=== PATIENT | female | born 1990 | race Caucasian/White ===

== ENCOUNTER 2016-09-03 16:49 | Emergency (ER) | payer MEDICAID ==
--- NOTE | 2016-09-03 17:46 | ED Physician Chart ---
Chief Complaint/HPI - Patient Information Date Seen:: 09/03/16 Time Seen:: 18:00 Chief Complaint:: vaginal spotting History of Present Illness:: Patient's had vaginal spotting since 07/13/2016. She denies abdominal pain. He was seen at [facility] on the and 26 of August. She was told on August 26 in her hormone level was decreasing. Patient is 1. 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: Vaginal discharge, Abnormal vaginal bleeding, No contraction Musculoskeletal: No bone or joint pain, No muscle pain Psychiatric: No prior psych history, No depression Hematopoietic: No bruising Allergic/Immuno: No urticaria Neurological: No syncope Past Medical History - Past Medical History Past Medical History: No significant medical hx Family History: None Social History: Smoker, No Alcohol, Other (smokes a pipe using the tobacco equivalent of 3 cigarettes a day) Surgical History: None Medication: None Family Medical History - Family Member Mother History Unknown: Yes Ethnicity: Living Status: Still Living Physical Exam - Physical Examination General/Constitutional: Well-developed, well-nourished, Alert, No distress Head: Atraumatic Eyes: Lids, conjuctiva normal, PERRL Skin: Nl inspection, No rash, No skin lesions, No ecchymosis ENMT: External ears, nose nl, TM canals nl, Nasal exam nl, Lips, teeth, gums nl , Oropharynx nl, Tonsils nl Neck: No nuchal rigidity Respiratory: Nl effort/Exclusion, Clear to Auscultation Cardio Vascular: RRR GI: No tenderness/rebounding/guarding Other comments:: Bimanual pelvic exam: No cervical motion or adnexal tenderness; uterus not enlarged to palpation; minimal reddish fluid on examining glove Extremities: No tenderness or effusion Neuro/Psych: Alert/oriented, No focal deficits Labs/Radiology/EKG Results - Lab Results Results: Laboratory Results - last 24 hr 09/03/16 09/03/16 09/03/16 17:10 17:10 18:20 WBC 9.8 RBC 4.23 Hgb 13.2 Hct 38.4 MCV 90.8 MCH 31.3 H MCHC Differential 34.4 RDW 11.5 Plt Count 295 MPV 8.7 Neutrophils % 59.0 Lymphocytes % 28.7 Monocytes % 8.3 Eosinophils % 3.4 Basophils % 0.6 Beta HCG, Quant Urine Source CLEAN C Urine Color YELLOW Urine Clarity SLIGHT HAZY Urine pH 5.0 Ur Specific [place] 1.030 Urine Protein TRACE Urine Glucose (UA) NEGATIVE Urine Ketones TRACE Urine Blood LARGE H Urine Nitrate NEGATIVE Urine Bilirubin SMALL H Urine Urobilinogen 0.2 Ur Leukocyte Esterase NEGATIVE Urine RBC 10-25 H Urine WBC 0-2 Ur Epithelial Cells MANY Urine Bacteria FEW Urine Test POSITIVE Blood Type Antibody Screen 09/03/16 09/03/16 18:20 18:20 WBC RBC Hgb Hct MCV MCH MCHC Differential RDW Plt Count MPV Neutrophils % Lymphocytes % Monocytes % Eosinophils % Basophils % Beta HCG, Quant 831 Urine Source Urine Color Urine Clarity Urine pH Ur Specific [place] Urine Protein Urine Glucose (UA) Urine Ketones Urine Blood Urine Nitrate Urine Bilirubin Urine Urobilinogen Ur Leukocyte Esterase Urine RBC Urine WBC Ur Epithelial Cells Urine Bacteria Urine Test Blood Type O POSITIVE Antibody Screen NEGATIVE - Radiology Results Results: Pelvic ultrasound showed uterine fibroid only; no IUP ED Septic Shock - . Is Septic Shock (SBP<90, OR Lactate>4 mmol\L) present?: No Reassessment (Disposition) - Reassessment Reassessment Condition:: Unchanged - Diagnosis Diagnosis:: Complete Ab - Aftercare/Follow up Instructions Aftercare/Follow-Up Instructions:: Counseled pt regarding lab results/diagnosis & need follow up - Patient Disposition Discharge/Transfer:: Home Condition at Disposition:: Stable, Unchanged
[2016-09-03 18:03] LABS: URINE BILIRUBIN SMALL (NEGATIVE); URINE BLOOD LARGE (NEGATIVE); URINE COLOR YELLOW; URINE GLUCOSE (UA) NEGATIVE (NEGATIVE); URINE KETONE TRACE mg/dL (NEGATIVE)
[2016-09-03 18:04] LABS: URINE BACTERIA FEW /hpf (NONE SEEN); URINE EPITHELIAL CELLS MANY /lpf (FEW); URINE PROTEIN TRACE mg/dL (NEGATIVE); URINE UROBILINOGEN 0.2 E.U./dL (0.2 - 1.0); URINE WBC 0-2 /hpf (0-5)
[2016-09-03 18:28] LABS: % BASOPHILS 0.6 % (0.0-2.0); % EOSINOPHILS 3.4 % (0.0-5.0); % LYMPHOCYTES 28.7 % (20.0-50.0); % MONOCYTES 8.3 % (2.0-10.0); HEMATOCRIT 38.4 % (35.0-45.0); HEMOGLOBIN 13.2 gm/dL (11.7-15.5); MEAN CELL VOLUME 90.8 fl (81-100); MEAN CORPUSCULAR HEMOGLOBIN 31.3 pg (27.0-31.0); MEAN CORPUSCULAR HGB CONC 34.4 pg (28.0-36.0); MEAN PLATELET VOLUME 8.7 fl; NEUTROPHILE ABSOLUTE 5.8 Th/cmm (1.8-8.0); PLATELET COUNT 295 Th/cmm (150-400); RED BLOOD COUNT 4.23 Mil/cmm (3.80-5.10); RED CELL DISTRIBUTION WIDTH 11.5 % (11.5-20.0); WHITE BLOOD COUNT 9.8 Th/cmm (4.8-10.8)
--- NOTE | 2016-09-04 10:11 | Diagnostic Imaging Report ---
Ultrasound OB less than 14 weeks HISTORY: Pain. Possible spontaneous . Questionable LMP on 07/13/2016 COMPARISON: None Technique: Longitudinal and transverse sonographic sector images of the pelvis were obtained transabdominally and transvaginally. FINDINGS: The uterus measures 8.0 x 3.0 x 4 cm. The endometrial echo complex measures 5 mm. No gestational sac identified. Small amount of fluid is seen within the endocervical canal. There is a heterogeneous area along the lower uterine segment measuring 4.1 x 2.2 cm. Its is indeterminate and may represent a fibroid or other mass lesions. Ectopic is considered less likely. The right ovary measures 3.6 x 1.9 cm. Left ovary measures 2.7 x 2.3 cm. Bilateral ovarian follicular cystic changes are noted. Vascular flow to the ovaries is noted. No evidence of free fluid in the pelvis. IMPRESSION: No intrauterine gestational sac identified. A small amount of fluid is seen within the endocervical canal. Note is also made of a indeterminate structure/possible mass along the lower uterine region. This may represent a fibroid or other pelvic mass lesions. Ectopic is considered less likely but cannot be completely excluded. Please correlate patient's clinical findings. Short-term follow-up ultrasound or possibly when clinically feasible CT or MRI is recommended. Trace fluid in the endocervical canal. No evidence of free fluid in the pelvis. In the presence of a positive test, ectopic gestation should be excluded.
== END 2016-09-03 20:20 | disposition home or self-care (01) ==
LOC: ER 16:49
DX: O03.9 Complete or unspecified spontaneous abortion without complication (principal); F17.210 Nicotine dependence, cigarettes, uncomplicated; Z3A.14 14 weeks gestation of pregnancy
CPT/HCPCS: 36415-UA; 76801-TC; 81001-TC; 81025-TC; 84702-TC; 85025-TC; 86850-TC; 86900-TC; 86901-TC

== ENCOUNTER 2016-09-13 10:11 | Emergency (ER) | payer MEDICAID ==
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
[2016-09-13] MEDS ORDERED: Sodium Chloride 0.9% 500 ML IV ONE (10:40)
[2016-09-13 10:59] LABS: % BASOPHILS 1.1 % (0.0-2.0); % LYMPHOCYTES 19.7 % (20.0-50.0); % MONOCYTES 8.6 % (2.0-10.0); % NEUTROPHILS 66.6 % (40.0-80.0); HEMATOCRIT 44.6 % (35.0-45.0); MEAN CELL VOLUME 91.3 fl (81-100); MEAN CORPUSCULAR HEMOGLOBIN 30.8 pg (27.0-31.0); MEAN CORPUSCULAR HGB CONC 33.7 pg (28.0-36.0); MEAN PLATELET VOLUME 8.9 fl; NEUTROPHILE ABSOLUTE 5.6 Th/cmm (1.8-8.0); PLATELET COUNT 299 Th/cmm (150-400); RED BLOOD COUNT 4.88 Mil/cmm (3.80-5.10); RED CELL DISTRIBUTION WIDTH 11.8 % (11.5-20.0); WHITE BLOOD COUNT 8.3 Th/cmm (4.8-10.8)
[2016-09-13 11:10] LABS: INR 1.1 (0.5-1.4); PROTHROMBIN TIME (TEST) 11.5 SECONDS (9.5-11.5)
[2016-09-13 11:13] LABS: ALB/GLOB RATIO 1.5 (1.0-1.8); ALKALINE PHOSPHATASE 67 U/L (34-104); ANION GAP 10.5 (7.0-16.0); BILIRUBIN,TOTAL 1.2 mg/dL (0.3-1.0); BUN - UREA NITROGEN 23 mg/dL (7-25); BUN/CREATININE RATIO 28.8; CALCIUM SERUM 9.8 mg/dL (8.6-10.3); CARBON DIOXIDE 25.4 mEq/L (21.0-31.0); CHLORIDE 99 mEq/L (98-107); CREATININE - SERUM 0.8 mg/dL (0.6-1.2); GLUCOSE 163 mg/dL (70-105); SGOT 15 U/L (13-39); SGPT/ALT 15 U/L (7-52); SODIUM SERUM 132 mEq/L (136-145)
[2016-09-13 11:19] LABS: POTASSIUM SERUM 2.9 mEq/L (3.5-5.1)
[2016-09-13] MEDS ORDERED: Potassium Chloride 20 mEq ER Tab PO ONE ×2 (11:28→11:30)
[2016-09-13 11:34] LABS: AMPHETAMINE URINE POSITIVE (NEGATIVE); BARBITURATES URINE NEGATIVE (NEGATIVE); METHADONE URINE NEGATIVE (NEGATIVE)
[2016-09-13 11:54] LABS: URINE COLOR YELLOW; URINE GLUCOSE (UA) NEGATIVE (NEGATIVE)
[2016-09-13 11:55] LABS: URINE BLOOD MODERATE (NEGATIVE); URINE KETONE NEGATIVE (NEGATIVE); URINE PROTEIN 30 mg/dL (NEGATIVE)
[2016-09-13 11:57] LABS: URINE BILIRUBIN MODERATE (NEGATIVE)
[2016-09-13 12:06] LABS: URINE BACTERIA OCCASIONAL /hpf (NONE SEEN); URINE EPITHELIAL CELLS FEW /lpf (FEW)
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
== END 2016-09-13 14:20 | disposition home or self-care (01) ==
LOC: ER 10:11
DX: S05.11XA Contusion of eyeball and orbital tissues, right eye, initial encounter (principal); E87.6 Hypokalemia; E86.0 Dehydration; F19.10 Other psychoactive substance abuse, uncomplicated; F17.210 Nicotine dependence, cigarettes, uncomplicated; Y04.0XXA Assault by unarmed brawl or fight, initial encounter; Y93.89 Activity, other specified; Y92.89 Other specified places as the place of occurrence of the external cause; Y99.8 Other external cause status
CPT/HCPCS: 99285; 70450; 70486; 36415; 84702; 80307; 85025; 85610; 81001; 81025; 80053; J7040

== ENCOUNTER 2016-09-18 22:20 | Emergency (ER) | payer MEDICAID ==
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
[2016-09-18 23:02] LABS: URINE BILIRUBIN NEGATIVE (NEGATIVE); URINE BLOOD MODERATE (NEGATIVE); URINE COLOR YELLOW; URINE GLUCOSE (UA) NEGATIVE (NEGATIVE); URINE KETONE TRACE mg/dL (NEGATIVE); URINE PROTEIN 100 mg/dL (NEGATIVE)
[2016-09-18 23:03] LABS: URINE RBC 25-50 /hpf (0-5); URINE WBC 25-50 /hpf (0-5)
[2016-09-18 23:04] LABS: URINE BACTERIA MODERATE /hpf (NONE SEEN); URINE EPITHELIAL CELLS FEW /lpf (FEW)
== END 2016-09-18 23:20 | disposition home or self-care (01) ==
LOC: ER 22:20
DX: N39.0 Urinary tract infection, site not specified (principal)
CPT/HCPCS: 81001-TC; 87086-90; Z7502

== ENCOUNTER 2016-11-24 20:10 | Emergency (ER) | payer MEDICAID ==
--- NOTE | 2016-11-24 20:53 | ED Physician Chart ---
ED Chief Complaint/HPI - Patient Information Date Seen:: 11/24/16 Time Seen:: 20:48 Chief Complaint:: itchy History of Present Illness:: pt here w her boyfriend who is itchy and has a rash he thinks is scabies. he had it once recently and she got tx too and felt better...thinks she may have got it again from him. she has no rash or distinct lesions but feels itchy all over and particularly at her arms /shldrs. no fever. no sob. no cough. no aches. no n/v/d. no kai pmh. denies any risk of being gravid at this time. Allergies:: Allergies Allergy/AdvReac Type Severity Reaction Status Date / Time No Known Allergies Allergy Verified 11/24/16 20:44 Historian:: Patient ED Review of Systems - Review of Systems General/Constitutional: No fever, No chills, No weight loss, No weakness, No diaphoresis, No edema, No loss of appetite Skin: No skin lesions, No rash, No bruising, Other (itchy) Head: No headache, No light-headedness Eyes: No loss of vision, No pain, No diplopia ENT: No earache, No nasal drainage, No sore throat, No tinnitus Neck: No neck pain, No swelling, No thyromegaly, No stiffness, No mass noted Cardio Vascular: No chest pain, No palpitations, No PND, No orthopnea, No edema Pulmonary: No SOB, No cough, No sputum, No wheezing GI: No nausea, No vomiting, No diarrhea, No pain, No melena, No hematochezia, No constipation, No hematemesis G/U: No dysuria, No frequency, No hematuria Musculoskeletal: No bone or joint pain, No back pain, No muscle pain Endocrine: No polyuria, No polydipsia Psychiatric: No prior psych history, No depression, No anxiety, No suicidal ideation Hematopoietic: No bruising, No lymphadenopathy Allergic/Immuno: No urticaria, No angioedema Neurological: No syncope, No focal symptoms, No weakness, No paresthesia, No headache, No seizure, No dizziness, No confusion, No vertigo ED Past Medical History - Past Medical History Past Medical History: No significant medical hx (scabies 1x recently) Social History: Smoker, Alcohol Medication: Reviewed Family Medical History - Family Member Mother History Unknown: Yes Ethnicity: Living Status: Still Living Hx Family Cancer: Yes (father-prostate [place]) ED Physical Exam - Physical Examination General/Constitutional: Awake, Well-developed, well-nourished, Alert, No distress, GCS 15, Non-toxic appearing, Ambulatory Other Gen/Cons comments:: no obvious rash. no distress. nontoxic. Head: Atraumatic Eyes: Lids, conjuctiva normal, PERRL, EOMI Skin: Nl inspection, No rash, No skin lesions, No ecchymosis, Well hydrated, No lymphadenopathy ENMT: External ears, nose nl, Nasal exam nl, Lips, teeth, gums nl Neck: Nontender, Full ROM w/o pain, No JVD, No nuchal rigidity, No bruit, No mass, No stridor Respiratory: Nl effort/Exclusion, Clear to Auscultation, No Wheeze/Rhonchi/Rales Cardio Vascular: RRR, No murmur, gallop, rubs, NL S1 S2 GI: No tenderness/rebounding/guarding, No organomegaly, No hernia, Normal BS's, Nondistended, No mass/bruits, No McBurney tenderness : No CVA tenderness Extremities: No tenderness or effusion, Full ROM, normal strength in all extremities, No edema, Normal digits & nails Neuro/Psych: Alert/oriented, DTR's symmetric, Normal sensory exam, Normal motor strength, Judgement/insight normal, Mood normal, Normal gait, No focal deficits Misc: normal gait, Normal back, No paraspinal tenderness ED Septic Shock - . Is Septic Shock (SBP<90, OR Lactate>4 mmol\L) present?: No ED Reassessment (Disposition) - Reassessment Reassessment:: rx elimite cream and benadryl po advised see pmd this week. return if worse. cant say for sure this is scabies but since historiacl story is good and pt could have very early case (bf has a rash on rt foot) will go ahead and begin tx. dw pt. Reassessment Condition:: Improved - Diagnosis Diagnosis:: Itching - possible early scabies - Aftercare/Follow up Instructions Aftercare/Follow-Up Instructions:: Counseled pt regarding lab results/diagnosis & need follow up - Patient Disposition Discharge/Transfer:: Home Condition at Disposition:: Improved
== END 2016-11-24 20:55 | disposition home or self-care (01) ==
LOC: ER 20:10
DX: L29.9 Pruritus, unspecified (principal)

== ENCOUNTER 2016-12-18 13:49 | Emergency (ER) | payer MEDICAID, OTHER ==
--- NOTE | 2016-12-18 14:47 | ED Physician Chart ---
ED Chief Complaint/HPI - Patient Information Date Seen:: 12/18/16 Time Seen:: 14:18 Chief Complaint:: scabies for 6 months History of Present Illness:: 26 yo female had itchiness in the neck and hair, bilateral inner upper thigh and groin areas for 6 months. It was likely due to scabies transmitted from her boyfriend had scabies infection for 1 year. Allergies:: Allergies Allergy/AdvReac Type Severity Reaction Status Date / Time No Known Allergies Allergy Verified 11/24/16 20:44 Vitals:: Vital Signs - 8 hr 12/18/16 13:51 Temp 98.1 F HR 84 RR 16 BP 117/69 O2 Sat % 98 ED Review of Systems - Review of Systems General/Constitutional: No fever Skin: Skin lesions Head: No headache Eyes: No loss of vision ENT: No earache Neck: No neck pain Cardio Vascular: No chest pain GI: No nausea G/U: No dysuria Musculoskeletal: No bone or joint pain Endocrine: No polyuria Psychiatric: No prior psych history Hematopoietic: No bruising Neurological: No syncope ED Past Medical History - Past Medical History Past Medical History: No significant medical hx Social History: Smoker, Alcohol, Illicit Drug Use (marijuna) Surgical History: None Psychiatricy History: None Family Medical History - Family Member Mother History Unknown: Yes Ethnicity: Living Status: Still Living Hx Family Cancer: No Hx Family Hypertension: No Hx Family Stroke: No Hx Family Seizures: No Hx Family Dementia: No Hx Family COPD: No Hx Family Hepatitis: No Hx Family Tuberculosis: No ED Physical Exam - Physical Examination Head: Atraumatic Eyes: Lids, conjuctiva normal, PERRL, EOMI Other Skin comments:: Erythematous vesicles and papules are present on neck and inner thigh. Some skin lesions have adjacent linear excoriations. Neck: Full ROM w/o pain Respiratory: Clear to Auscultation Cardio Vascular: No murmur, gallop, rubs, NL S1 S2 GI: No tenderness/rebounding/guarding Extremities: Full ROM Neuro/Psych: No focal deficits ED Labs/Radiology/EKG Results - Lab Results Results: Urine test: negative ED Assessment - Assessment General Assessment: Scabies, mild Critical Care Time: 30 Excludes all billable procedures: Yes This condition life threatening/high prob of deterioration: No Assessment/Comments:: 1. Permethrin 5% cream topical apply qd x 7 days 2. Ivermectin 12mg PO once ED Septic Shock - . Is Septic Shock (SBP<90, OR Lactate>4 mmol\L) present?: No - <6hrs of presentation: Vital Signs: Vital Signs - 8 hr 12/18/16 13:51 Temp 98.1 F HR 84 RR 16 BP 117/69 O2 Sat % 98 ED Reassessment (Disposition) - Reassessment Reassessment Condition:: Unchanged - Aftercare/Follow up Instructions Aftercare/Follow-Up Instructions:: Counseled pt regarding lab results/diagnosis & need follow up, Refer to Discharge Instructions - Patient Disposition Discharge/Transfer:: Home ED Discharge Plan - Patient Disposition Admit/Discharge/Transfer: PT DISCHARGED HOME Condition at Disposition: Stable Prescriptions: Ivermectin [Stromectol] 3 mg PO ONCE #4 tab Permethrin 5% Cream [Elimite 5% Cream] 1 applic TP DAILY 7 Days #60 gm Instructions: Scabies
== END 2016-12-18 15:15 | disposition home or self-care (01) ==
LOC: ER 13:49
DX: B86 Scabies (principal); F12.10 Cannabis abuse, uncomplicated
CPT/HCPCS: 81025-TC; Z7502

== ENCOUNTER 2017-04-22 13:46 | Emergency (ER) | payer OTHER ==
--- NOTE | 2017-04-22 15:23 | ED Physician Chart ---
ED Chief Complaint/HPI - Patient Information Date Seen:: 04/22/17 Time Seen:: 14:25 Chief Complaint:: Itching Rash History of Present Illness:: onset x 3 days of itching rash especially on the arms; pt is 20 weeks IUP; pt denies trauma, H/As, LOC, ALOC, AMS, S/T, neck pain, cough, C/P, SOB, Abd. Pain , A/N/V/D/C, fever, chills, VB, VD, or urinary s/s; pt's last tetanus shot: < 5 years; UTD; Allergies:: Allergies Allergy/AdvReac Type Severity Reaction Status Date / Time No Known Allergies Allergy Verified 11/24/16 20:44 Vitals:: Vital Signs - 8 hr 04/22/17 04/22/17 14:26 14:51 Temp 98.2 F 98.2 F HR 102 81 RR 16 16 BP 118/65 129/79 O2 Sat % 98 99 Historian:: Patient Review:: Nurse's Note Reviewed ED Review of Systems - Review of Systems General/Constitutional: No fever, No chills, No weight loss, No weakness, No diaphoresis, No edema, No loss of appetite Skin: Skin lesions, Rash, No bruising Head: No headache, No light-headedness Eyes: No loss of vision, No pain, No diplopia ENT: No earache, No nasal drainage, No sore throat, No tinnitus Neck: No neck pain, No swelling, No thyromegaly, No stiffness, No mass noted Cardio Vascular: No chest pain, No palpitations, No PND, No orthopnea, No edema Pulmonary: No SOB, No cough, No sputum, No wheezing GI: No nausea, No vomiting, No diarrhea, No pain, No melena, No hematochezia, No constipation, No hematemesis G/U: No dysuria, No frequency, No hematuria, No nacturia Appliance Mechanic: No vaginal discharge, No abnormal vaginal bleed, No contraction Musculoskeletal: No bone or joint pain, No back pain, No muscle pain Endocrine: No polyuria, No polydipsia Psychiatric: No prior psych history, No depression, No anxiety, No suicidal ideation, No homicidal ideation, No auditory hallucination, No visual hallucination Hematopoietic: No bruising, No lymphadenopathy Allergic/Immuno: No urticaria, No angioedema Neurological: No syncope, No focal symptoms, No weakness, No paresthesia, No headache, No seizure, No dizziness, No confusion, No vertigo ED Past Medical History - Past Medical History Obtainable: Yes Past Medical History: No significant medical hx, Other (IUP) Family History: HTN Social History: Non Smoker, No Alcohol, No Drug Use, Surgical History: None Psychiatricy History: None Medication: Reviewed Family Medical History - Family Member Mother History Unknown: Yes Ethnicity: Living Status: Still Living Hx Family Cancer: No Hx Family Coronary Artery Disease: No Hx Family Congestive Heart Failure: No Hx Family Hypertension: No Hx Family Stroke: No Hx Family Diabetes: No Hx Family Seizures: No Hx Family Dementia: No Hx Family AIDS: No Hx Family HIV: No Hx Family COPD: No Hx Family Hepatitis: No Hx Family Psychiatric Problems: No Hx Family Tuberculosis: No ED Physical Exam - Physical Examination General/Constitutional: Awake, Well-developed, well-nourished, Alert, No distress, GCS 15, Non-toxic appearing, Ambulatory Head: Atraumatic Eyes: Lids, conjuctiva normal, PERRL, EOMI Skin: Nl inspection, No skin lesions, No ecchymosis, Well hydrated, No lymphadenopathy Other Skin comments:: + Macular-Papular Lesions especially at both UEs CW Scabies; good NV functions; no FBs; no cellulitis ENMT: External ears, nose nl, TM canals nl, Nasal exam nl, Lips, teeth, gums nl , Oropharynx nl, Tonsils nl Neck: Nontender, Full ROM w/o pain, No JVD, No nuchal rigidity, No bruit, No mass, No stridor Other Neck comments:: supple; no meningeal signs; no cervical tenderness; no bruits Respiratory: Nl effort/Exclusion, Clear to Auscultation, No Wheeze/Rhonchi/Rales Cardio Vascular: RRR, No murmur, gallop, rubs, NL S1 S2, Carotid/Femoral/Distal pulses equal bilaterally GI: No tenderness/rebounding/guarding, No organomegaly, No hernia, Normal BS's, Nondistended, No mass/bruits, No McBurney tenderness Other GI comments:: + IUP; no pulsatile masses : No CVA tenderness Extremities: No tenderness or effusion, Full ROM, normal strength in all extremities, No edema, Normal digits & nails Neuro/Psych: Alert/oriented, DTR's symmetric, Normal sensory exam, Normal motor strength, Judgement/insight normal, Mood normal, Normal gait, No focal deficits Misc: Normal back, No paraspinal tenderness ED Septic Shock - . Is Septic Shock (SBP<90, OR Lactate>4 mmol\L) present?: No - <6hrs of presentation: Vital Signs: Vital Signs - 8 hr 04/22/17 04/22/17 14:26 14:51 Temp 98.2 F 98.2 F HR 102 81 RR 16 16 BP 118/65 129/79 O2 Sat % 98 99 ED Reassessment (Disposition) - Reassessment Reassessment:: pt is asymptomatic upon discharge Reassessment Condition:: Improved - Diagnosis Diagnosis:: Rash; Itching Rash; Dermatitis; Scabies; IUP - Aftercare/Follow up Instructions Aftercare/Follow-Up Instructions:: Counseled pt regarding lab results/diagnosis & need follow up, Refer to Discharge Instructions, Counseled pt & family regarding lab results/diagnosis & need follow up Notes:: Skin Care/Scabies Care/ Care Instructions - Patient Disposition Discharge/Transfer:: Home Condition at Disposition:: Stable, Improved (RTER prn if existing s/s reoccur and/or get worse and/or any other new s/s occur; ACIs given for all above Dx; refer to OB-EXCAVATING CONTRACTOR Specialist/Physician Support Coordinator/Pulverizing And Sifting Operator/Workshop Manager NIRANJAN; F/U with PMD in one day or prn; RTER prn if concerned) ED Discharge Plan - Patient Disposition Admit/Discharge/Transfer: PT DISCHARGED HOME Condition at Disposition: Stable Instructions: Scabies
== END 2017-04-22 15:00 | disposition home or self-care (01) ==
LOC: ER 13:46
DX: O26.892 Other specified pregnancy related conditions, second trimester (principal); B86 Scabies; L30.9 Dermatitis, unspecified; Z3A.20 20 weeks gestation of pregnancy
CPT/HCPCS: Z7502